=== PATIENT | female | born 1945 | race Caucasian/White ===

== ENCOUNTER 2024-07-03 13:24 | Outpatient (AMB) | payer MEDICARE, SELFPAY ==
[2024-07-03 13:36] VITALS: BP 155/80; PULSE 87; RESP 17; TEMP 35.9; O2SAT 96; BMI 29.2
--- NOTE | 2024-07-03 13:36 | ORTHONT_ITS ---
Vital signs 07/03/24 13:36 Height 1.63 m Height Method Measured Weight 77.111 kg Weight Measurement Method Standing Scale BMI 29.2 BP 155/80 H Blood Pressure Source Automatic Cuff Blood Pressure Location Right Upper Arm Position Sitting Respiration 17 Pulse 87 Pulse Source Monitor Temp 96.7 F L Temp Source Temporal Artery Scan Pulse Oximetry (%) 96 Oxygen Delivery Method Room Air Med/Allergies Allergies & Medications Allergies ciprofloxacin Allergy (Verified 07/03/24 13:38) Hives codeine Allergy (Verified 07/03/24 13:38) Hives Medication Reconciliation meloxicam 7.5 mg tablet 7.5 mg PO QDAY #45 tabs 07/03/24 [Rx] Exam Exam Patient is in no acute distress and is cooperative with the examination today. Breathing is nonlabored. Patient has a normal mood and affect. Bilateral extremities were evaluated and demonstrates sensation intact to light touch. Palpable pedal pulses are present. No significant edema is present. Bilateral hips were examined. The patient has no pain with log roll of the hips. Internal rotation to 30 degrees and external rotation to 30 degrees is painless. Negative FADIR. Right knee was examined today. The right knee is in reasonable alignment. Range of motion from 0-120 degrees. Knee is stable to varus and valgus as well as AP translation with <5mm. Patient has a negative McMurrays. There is no pain with patellofemoral compression and no crepitus noted. The knee is nontender to palpation. Left knee was examined today. The left knee is in varus alignment. Range of motion from 0-115 degrees. Knee is stable to varus and valgus as well as AP translation with <5mm. Patient has a negative McMurrays. There is no pain with patellofemoral compression and no crepitus noted. The knee is tender to palpation Laterally Assessment and Plan Problem List (1) Degenerative arthritis of knee, bilateral: Status: Acute Plan: Patient is a 78-year-old female with bilateral knee pain and bilateral knee arthritis. I would like to get weightbearing x-rays to better evaluate the severity. We will likely treat her conservatively with injections today Advanced Care Planning Discussion Advance care planning discussed with:: patient Office Procedures GNS Level of Care Nursing/Assessment Patient Status: Initial/New Patient Nursing Assessment/Reassesment: Medication Reconciliation, Update PMH in EMR and Vital Signs Coordination of Care: Complex Care and Chronic Disease 1-5, Education Complex Pt/Fam, Consent,records obtained, informed consent, 1 Ins Authorization, Lab and Imaging orders, Results/Orders obtained and Staff clarify orders New Patient Charge New Patient Point Assignment: 1124 New Patient Point Charge: FRUIT TRIMMER Level 4 ([id number]) Surgical Proc/IM SQ injection Major Surgical Procedure: Yes (BILATERAL KNEE INJECTION) Medication Given Medication Given Medication Given: Yes Documented Dose Given: 8 Route: Infiitration Medication Given Medication Given Medication Given: Yes Documented Dose Given: 2 Route: Infiitration Office Meds Xylocaine 10 mg/mL (1 %) injection solution Performing Provider: Maxim Hall MD Performing Location: [facility] Administered by: Maxim Hall MD on 07/03/24 14:28 Dose Route Admin Location Dispensed Lot Number Expiration Date [facility] Freight Engineer 40 mL Infiltration 40 mL [id number] 06/05/27 67882-527-91 [facility] triamcinolone acetonide 40 mg/mL suspension for injection Performing Provider: Maxim Hall MD Performing Location: [facility] Administered by: Maxim Hall MD on 07/03/24 14:28 Dose Route Admin Location Dispensed Lot Number Expiration Date [facility] Freight Engineer 80 mg intra-articular 2 mL [id number] 02/03/26 8140-9644-82 [facility] [place] Intake Visit Data Collection New Patient or Established: New Patient (never been to [facility]) Reason for Visit:: LEFT KNEE PAIN Seen by Clinical Staff ONLY (RN/MA): No Client Representative Required: No PCP or OBGYN visit in last 3 months: Yes Hx Now: No Do You Feel Safe at Home: Yes Authorities Contacted: N/A Questionairres Past Medical History Past Medical History Have you ever been diagnosed with any of the following: Respiratory Problems Smoking: No Smoking Cessation Counseling: No Smoking Exposure: No Tobacco Use: No Subjective Visit Visit for: new patient and knee (LEFT KNEE PAIN ) Immunization / Flu Flu Vaccine in the Last 12 Months: No Flu Vaccine Exclusion Criteria: Refused by Patient History of Present Illness Chief complaint: Bilateral knee pain Patient is a 78-year-old female with bilateral knee pain worse on the left. This knee pain has been ongoing for several years. The pain is Affecting her quality life and happiness. She has not had any significant conservative treatment except for ibuprofen Personal History Red flag PMH: none Pain Pain level (0-10): 8 Pain duration: 2 MONTHS Pain location: anterior Pain quality: sharp, dull, aching and tingling Pain timing: night and increases with activity Associated signs & symptoms: weakness Ambulatory data Ambulatory device: none Walking distance (minutes): 1 Treatments Number of previous injections: 0 Number of Physical Therapy sessions: 0 Improvement with NSAIDS: n/a Review of Systems Review of Systems: All systems negative unless otherwise noted in HPI.
--- NOTE | 2024-07-03 13:42 | XR_ITS ---
Examination: Bilateral knees 2 views Right lateral knee left lateral knee 2 views Bilateral axial knees single view TECHNIQUE: Bilateral AP knees standing single view, bilateral PA knees standing single view flexion Standing right lateral knee left lateral knee 2 views Bilateral axial knees single view total 5 views Date and time: July 03, 2024 1353 hours INDICATIONS: Bilateral knee pain several months. FINDINGS: Moderate osteopenia Advanced narrowing [id number] lateral joint space right knee Moderate to advanced osteoarthritis right patellofemoral joint and medial joint space Moderate tricompartment narrowing left knee joints No fractures IMPRESSION: Advanced narrowing, [id number], lateral joint space right knee Moderate to advanced osteoarthritis right patellofemoral and medial joint spaces
== END 2024-07-03 14:28 | disposition home or self-care (01) ==
LOC: HODSRG 13:24
PROVIDERS: PCP Physician Assistant; Referring Provider Physician Assistant; Supervising Provider Orthopaedic Surgery Adult Reconstructive Orthopaedic Surgery; Visit Provider Orthopaedic Surgery Adult Reconstructive Orthopaedic Surgery
DX: M17.0 Bilateral primary osteoarthritis of knee (principal); M25.562 Pain in left knee; M25.561 Pain in right knee
CPT/HCPCS: 20610; 73564; 99204; J3301; J3490; G0463

== ENCOUNTER 2024-10-30 14:29 | Outpatient (AMB) | payer MEDICARE, MEDICAID, SELFPAY ==
[2024-10-30 14:49] VITALS: BP 122/77; PULSE 84; RESP 18; TEMP 36.4; O2SAT 95; BMI 29.2
--- NOTE | 2024-10-30 14:49 | ORTHONT_ITS ---
Vital signs 10/30/24 14:49 Height 1.63 m Height Method Stated Weight 77.734 kg Weight Measurement Method Standing Scale BMI 29.2 BP 122/77 Blood Pressure Source Automatic Cuff Blood Pressure Location Right Upper Arm Position Sitting Respiration 18 Pulse 84 Pulse Source Monitor Temp 97.5 F Temp Source Temporal Artery Scan Pulse Oximetry (%) 95 Oxygen Delivery Method Room Air Med/Allergies Allergies & Medications Allergies ciprofloxacin Allergy (Verified 10/30/24 14:49) Hives codeine Allergy (Verified 10/30/24 14:49) Hives Medication Reconciliation meloxicam 7.5 mg tablet 7.5 mg PO QDAY #45 tabs 07/03/24 [Rx Confirmed 10/30/24] Exam Exam Patient is in no acute distress and is cooperative with the examination today. Breathing is nonlabored. Patient has a normal mood and affect. Bilateral extremities were evaluated and demonstrates sensation intact to light touch. Palpable pedal pulses are present. No significant edema is present. Bilateral hips were examined. The patient has no pain with log roll of the hips. Internal rotation to 30 degrees and external rotation to 30 degrees is painless. Negative FADIR. Right knee was examined today. The right knee is in reasonable alignment. Range of motion from 0-120 degrees. Knee is stable to varus and valgus as well as AP translation with <5mm. Patient has a negative McMurrays. There is no pain with patellofemoral compression and no crepitus noted. The knee is nontender to palpation. Left knee was examined today. The left knee is in varus alignment. Range of mot ion from 0-115 degrees. Knee is stable to varus and valgus as well as AP translation with <5mm. Patient has a negative McMurrays. There is no pain with patellofemoral compression and no crepitus noted. The knee is tender to palpation Laterally Imaging Musculoskeletal: Right knee: Severe arthritis with complete joint space obliteration and osteophytes Left knee: Moderate arthritis; more crooked Imaging - X-rays of bilateral knees: 07/03/2024, Severe arthritis laterally on the right with complete joint space obliteration and osteophytes. Moderate arthritis of the left knee. Assessment and Plan Problem List (1) Degenerative arthritis of knee, bilateral: Status: Acute Plan: ASSESSMENT AND PLAN 1. Bilateral knee pain: X-rays dated 07/03/2024 show severe arthritis in the right knee with complete joint space obliteration and osteophytes, and moderate arthritis in the left knee. The left knee is reported to hurt more and occasionally comes out of the joint. Previous injections provided relief for over 3 months. Two treatment op tions were discussed: continuing with injections every 3 to 4 months or opting for knee replacement surgery. She prefers to continue with injections due to fear of surgery. Injections will be administered in both knees. The risks and benefits of knee injections were discussed, including potential for temporary relief and the need for repeated treatments. She was advised to monitor the knee pain and report any significant changes or worsening symptoms. Lifestyle modifications such as avoiding activities that exacerbate knee pain and using supportive devices were recommended. No referrals were made at this time. Orders for knee injections were placed. Recommend knee cortisone injection as patient would like to proceed with conservative treatment at this time. The risks and benefits of the procedure were reviewed with the patient and patient gave verbal consent to continue with the procedure. Procedure: performed by Dr. Hall Using sterile technique the Right knee was thoroughly prepped with alcohol, and approximately 1 cc of Depo-Medrol 80mg/mL and 4 cc of 0.2% ropivacaine was injected without resistance into the medial tibial femoral joint space. The patient tolerated the procedure. Recommend knee cortisone injection as patient would like to proceed with conservative treatment at this time. The risks and benefits of the procedure were reviewed with the patient and patient gave verbal consent to continue with the procedure. Procedure: performed by Dr. Hall Using sterile technique the leftknee was thoroughly prepped with alcohol, and approximately 1 cc of Depo- Medrol 80mg/mL and 4 cc of 0.2% ropivacaine was injected without resistance into the medial tibial femoral joint space. The patient tolerated the procedure. Advanced Care Planning Discussion Advance care planning discussed with:: patient Office Procedures GNS Level of Care Nursing/Assessment Patient Status: Established Patient Nursing Assessment/Reassesment: Medication Reconciliation, Update PMH in EMR and Vital Signs Coordination of Care: Complex Care and Chronic Disease 1-5, Education Complex Pt/Fam, Consent,records obtained, informed consent, 1 Ins Authorization, Results/Orders obtained and Staff clarify orders Established Patient Charge Established Patient Point Assignment: 110 Established Patient Point Charge: EP Level 3 (80-115) Surgical Proc/IM SQ injection Minor Surgical Procedure: Yes (BILATERAL KNEE INJECTIONS ) Medication Given Medication Given Medication Given: Yes Documented Dose Given: 1 Route: Infiitration Medication Given Medication Given Medication Given: Yes Documented Dose Given: 1 Route: Infiitration Medication Given Medication Given Medication Given: Yes Documented Dose Given: 4 Route: Infiitration Medication Given Medication Given Medication Given: Yes Documented Dose Given: 4 Route: Infiitration Office Meds methylprednisolone acetate 80 mg/mL suspension for injection Performing Provider: Maxim Hall MD Performing Location: [facility] Administered by: Maxim Hall MD on 10/30/24 15:00 Dose Route Admin Location Dispensed Lot Number Expiration Date Pack age [facility] Typewriter Mechanic 80 mg intra-articular KNEE 1 mL [id number] 01/04/26 [address]-0 7 [id number] [employer] methylprednisolone acetate 80 mg/mL suspension for injection Performing Provider: Maxim Hall MD Performing Location: [facility] Administered by: Maxim Hall MD on 10/30/24 15:00 Dose Route Admin Location Dispensed Lot Number Expiration Date Pack age [facility] Type[employer] Mechanic 80 mg intra-articular KNEE 1 mL [id number] 07/05/26 [address]-8 7 [id number] [employer] ropivacaine (PF) 2 mg/mL (0.2 %) injection solution Performing Provider: Maxim Hall MD Performing Location: [facility] Administered by: Maxim Hall MD on 10/30/24 15:00 Dose Route Admin Location Dispensed Lot Number Expiration Date Pack age [facility] Typewriter Mechanic 20 mL Infiltration KNEE 20 mL [id number] 03/07/27 89586-485-61 [id number] [facility] ropivacaine (PF) 2 mg/mL (0.2 %) injection solution Performing Provider: Maxim Hall MD Performing Location: [facility] Administered by: Maxim Hall MD on 10/30/24 15:00 Dose Route Admin Location Dispensed Lot Number Expiration Date Pack age [facility] Type[employer] Mechanic 20 mL Infiltration KNEE 20 mL [id number] 03/07/27 93005-947-19 [id number] [facility] Intake Visit Data Collection New Patient or Established: Established Patient (seen at [facility] within 3 years) Reason for Visit:: 3 BILATERAL KNEE INJECTIONS Seen by Clinical Staff ONLY (RN/MA): No Verbal consent obtained for Telemed visit?: No Medical Equipment Sales Required: No PCP or OBGYN visit in last 3 months: Yes Hx Now: No Do You Feel Safe at Home: Yes Authorities Contacted: N/A Questionairres Past Medical History Past Medical History Have you ever been diagnosed with any of the following: Respiratory Problems Smoking: No Smoking Cessation Counseling: No Smoking Exposure: No Tobacco Use: No Subjective Visit Visit for: follow up visit and injections Immunization / Flu Flu Vaccine in the Last 12 Months: No Flu Vaccine Exclusion Criteria: No Exclusion Criteria History of Present Illness Chief complaint: 3 BILATERAL KNEE INJECTIONS HISTORY OF PRESENT ILLNESS I, Maxim Hall, have obtained verbal consent from the patient, to be recorded during this encounter which may include, but not limited to, medical history, examination, treatment plans, and relevant health information.? Patient was informed that recording will be read and reviewed by myself before inclusion in the medical chart. The patient is a 79-year-old female who presents today for evaluation of her bilateral knees. She reports that her right knee is in good condition, but she experiences more pain in her left knee. She also mentions that her left knee occasionally dislocates, but she manages it with caution. She received injections during her last visit, which provided relief for over 3 months. However, the pain has increased over the past month. Her last visit was on 07/03/2024. She expresses a preference for injections over surgery due to fear. Personal History Occupation: RETIRED Red flag PMH: none BMI Counceling provided: No Pain Pain level (0-10): 7 Pain duration: ALL DAY Pain location: inside (medial), outside (lateral), anterior and posterior Pain quality: sharp, dull and aching Pain timing: increases with activity, stairs and other (specify) Associated signs & symptoms: numbness and stiffness Ambulatory data Ambulatory device: none Walking distance (minutes): 1 Treatments Number of previous injections: 1 Improvement with previous injections: Yes Number of Physical Therapy sessions: 0 Improvement with PT: No Improvement with NSAIDS: no Review of Systems Review of Systems: All systems negative unless otherwise noted in HPI.
== END 2024-10-30 15:07 | disposition home or self-care (01) ==
PROVIDERS: PCP Physician Assistant; Referring Provider Physician Assistant; Supervising Provider Orthopaedic Surgery Adult Reconstructive Orthopaedic Surgery; Visit Provider Orthopaedic Surgery Adult Reconstructive Orthopaedic Surgery
DX: M17.0 Bilateral primary osteoarthritis of knee (principal); M25.562 Pain in left knee; M25.561 Pain in right knee; M25.762 Osteophyte, left knee; M25.761 Osteophyte, right knee
CPT/HCPCS: 20610; 99213; J1010; J2795; G0463